=== PATIENT | female | born 1975 | race Two or more races ===

== ENCOUNTER 2019-10-02 08:07 | Emergency (ER) | payer MEDICAID ==
[2019-10-02] MEDS ORDERED: KETOROLAC TROMETHAMINE 60 MG/2 ML SDV IM ONE (10:10)
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
--- NOTE | 2019-10-02 11:03 | RADIOLOGY REPORT (SQ) ---
EXAM DESCRIPTION: CT HEAD WITHOUT IMAGES COMPLETED DATE/TIME: 10/02/2019 9:44 am REASON FOR STUDY: Headache: Possible FUR SEWER shunt failure COMPARISON: None. TECHNIQUE: Axial images acquired through the brain without intravenous contrast. Images reviewed wi th bone, brain and subdural windows. Additional sagittal and coronal reconstructions were generated. Images stored on PACS. All CT scanners at this facility use dose modulation, iterative reconstruction, and/or weight based d osing when appropriate to reduce radiation dose to as low as reasonably achievable (ALARA). [facility]: Dose Right [facility]: CareDose [facility]: Dose Right [facility]: Teradose 4D [facility]: Smart Bioapter RADIATION DOSE: CT Rad equipment meets quality standard of care and radiation dose reduction techniq ues were employed. CTDIvol: 53.2 mGy. DLP: 1044 mGy-cm. mGy. LIMITATIONS: None. FINDINGS: VENTRICLES: Complete decompression of the left lateral ventricle with slit-like appearance of the right lateral ventricle and 3rd ventricle. CEREBRUM: No masses. No hemorrhage. No midline shift. No evidence for acute infarction. Normal gra y/white matter differentiation. No areas of low density in the white matter. CEREBELLUM: No masses. No hemorrhage. No alteration of density. No evidence for acute infarction. EXTRAAXIAL SPACES: No fluid collections. No masses. ORBITS AND GLOBE: No intra- or extraconal masses. Normal contour of globe without masses. CALVARIUM: No fracture. PARANASAL SINUSES: Polypoid mucosal thickening medial left maxillary sinus. Minimal mucosal thickeni ng inferior right maxillary sinus. Remaining paranasal sinuses are clear. SOFT TISSUES: No mass or hematoma. OTHER: A right transfrontal FUR SEWER shunt catheter is present with tip in the left lateral ventricle. Cat heter is intact as visualized. [place] has a normal appearance. IMPRESSION: 1. Right transfrontal ventriculoperitoneal shunt is intact, with tip in the left lateral ventricle. The left lateral ventricle is completely decompressed, with slit-like appearance of the right lateral ventricle and 3rd ventricle. 2. No acute intracranial hemorrhage, mass, or evidence of acute territorial infarct. EVIDENCE OF ACUTE STROKE: NO. COMMENT: Quality ID # [id number]: Final reports with documentation of one or more dose reduction techniques (e.g., Automated exposure control, adjustment of the mA and/or kV according to patient size, use of iterative reconstruction technique) TECHNICAL DOCUMENTATION: JOB ID: [id number] 2010 [employer]- All Rights Reserved Reading location - IP/workstation name: [email or web address]
--- NOTE | 2019-10-02 11:20 | RADIOLOGY REPORT (SQ) ---
EXAM DESCRIPTION: SHUNTOGRAM SERIES IMAGES COMPLETED DATE/TIME: 10/02/2019 11:03 am REASON FOR STUDY: Possible HEAT TREATING FURNACE TENDER shunt failure COMPARISON: Noncontrast head CT 10/02/2019 TECHNIQUE: Multi planar radiography was performed of the calvarium, chest, and abdomen to evaluate t he patient's shunt. LIMITATIONS: None. FINDINGS: Shunt tubing originates to the left of midline, traversing the right cerebral hemisphere a nd coursing along the right cervical soft tissues. The 2 being deferred posteriorly at the right upp er chest, and terminates posteriorly within the right hemithorax. No discontinuity or kink is demons trated. The surrounding bony and soft tissue structures are unremarkable. IMPRESSION: Ventricular thoracic shunt terminates posteriorly within the right hemithorax. No discr ete evidence of shunt complication. TECHNICAL DOCUMENTATION: JOB ID: [id number] 2010 [employer]- All Rights Reserved Reading location - IP/workstation name: [email or web address]
[2019-10-02 12:17] LABS: ABSOLUTE LYMPHOCYTES (AUTO) 1.3 10^3/uL (0.5-4.7); ABSOLUTE MONOCYTES (AUTO) 0.4 10^3/uL (0.1-1.4); ABSOLUTE NEUT (AUTO) 5.5 10^3/uL (1.7-8.2); BASOPHILS % (AUTO) 0.3 % (0-2); EOSINOPHILS % (AUTO) 0.3 % (0-6); LYMPHOCYTES % (AUTO) 17.6 % (13-45); MEAN CORPUSCULAR HEMOGLOBIN 17.7 pg (27.0-33.4); MEAN CORPUSCULAR HGB CONC 29.4 g/dL (32.0-36.0); MONOCYTES % (AUTO) 6.1 % (3-13); PLATELET COUNT 361 10^3/uL (150-450); RED BLOOD COUNT 3.98 10^6/uL (3.72-5.28); SEGMENTED NEUTROPHILS % (AUTO) 75.7 % (42-78); TOTAL CELLS COUNTED % (AUTO) 100 %; WHITE BLOOD COUNT 7.2 10^3/uL (4.0-10.5)
[2019-10-02 12:31] LABS: ALKALINE PHOSPHATASE 56 U/L (38-126); ANION GAP 8 (5-19); ASPARTATE AMINO TRANSFERASE 18 U/L (14-36); BILIRUBIN,TOTAL 0.3 mg/dL (0.2-1.3); BLOOD UREA NITROGEN 10 mg/dL (7-20); CALCIUM 9.2 mg/dL (8.4-10.2); CARBON DIOXIDE 21 mmol/L (22-30); CHLORIDE 105 mmol/L (98-107); GLUCOSE 90 mg/dL (75-110); POTASSIUM 4.3 mmol/L (3.6-5.0); TOTAL PROTEIN 7.5 g/dL (6.3-8.2)
[2019-10-02 12:43] LABS: APPEARANCE,URINE SLIGHTLY-CLOUDY; BILIRUBIN,URINE NEGATIVE (NEGATIVE); COLOR,URINE YELLOW; GLUCOSE, URINE NEGATIVE (NEGATIVE); KETONES,URINE TRACE mg/dL (NEGATIVE); LEUKOCYTE ESTERASE,URINE TRACE (NEGATIVE); NITRITE,URINE NEGATIVE (NEGATIVE); PROTEIN,URINE NEGATIVE (NEGATIVE); URINE SPECIFIC GRAVITY 1.016; UROBILINOGEN,URINE NEGATIVE mg/dL (<2.0)
[2019-10-02 12:58] LABS: URINE AMPHETAMINES SCREEN NEGATIVE; URINE BARBITURATES SCREEN NEGATIVE; URINE BENZODIAZEPINES SCREEN NEGATIVE; URINE COCAINE SCREEN NEGATIVE; URINE MARIJUANA (THC) SCREEN NEGATIVE; URINE METHADONE SCREEN NEGATIVE; URINE PHENCYCLIDINE SCREEN NEGATIVE
[2019-10-02 13:08] LABS: ANISOCYTOSIS 2+; HYPOCHROMASIA 2+; POIKILOCYTOSIS 2+; POLYCHROMASIA 1+
[2019-10-02 13:09] LABS: OVALOCYTES 2+; PLATELET COMMENT ADEQUATE; PLATELET LARGE PRESENT; SCHISTOCYTES SLIGHT; STOMATOCYTES 1+; TEAR DROP CELLS SLIGHT
[2019-10-02 13:11] LABS: MEAN CORPUSCULAR VOLUME 60 fl (80-97)
[2019-10-02 13:13] LABS: HEMOGLOBIN 7.1 g/dL (12.0-15.5)
[2019-10-02 15:17] VITALS: BP 116/63
[2019-10-03 12:23] LABS: PATH REVIEW PATHOLOGIST REVIEWED
== END 2019-10-02 15:14 | disposition home or self-care (01) ==
LOC: ER 08:07
DX: N93.8 Other specified abnormal uterine and vaginal bleeding (principal); D50.9 Iron deficiency anemia, unspecified; Z98.2 Presence of cerebrospinal fluid drainage device
CPT/HCPCS: 99284; 96372; 36415; 85025; 80053; 81001; 80307; 75809; 70450; J1885